=== PATIENT | male | born 1955 | race Caucasian/White ===

== ENCOUNTER 2017-11-08 12:22 | Emergency (ER) | payer OTHER ==
[2017-11-08] MEDS ORDERED: 0.9 % SODIUM CHLORIDE 1,000 ML BAG IV ONE (13:02)
[2017-11-08 13:03] LABS: INFLUENZA A NEGATIVE (NEGATIVE); INFLUENZA B NEGATIVE (NEGATIVE)
--- NOTE | 2017-11-08 13:04 | Emergency Department Record ---
History of Present Illness - General Chief Complaint: Cough Stated Complaint: CHEST PAIN,FEVER,WHEEZING,BODY ACHES Time Seen by Provider: 11/08/17 12:51 Source: Patient Mode of Arrival: Ambulatory - History of Present Illness Initial Comments: cough and body aches which started 2 days ago. head hurts with cough. PMH Hypertensions.chills and shakes last Onset/Timin -: Days(s) Severity: Moderate Severity scale (1-10): 8 Consistency: Intermittent, Getting worse - Related Data Home Medications Medication Instructions Recorded Confirmed Last Taken Multivit-Min/FA/Lycopen/Lutein 1 tab PO DAILY 11/08/17 11/08/17 11/08/17 [Centrum Silver Men Tablet] Previous Rx's Medication Instructions Recorded Doxycycline Monohydrate 100 mg PO BID #20 capsule 11/08/17 Allergies Allergy/AdvReac Type Severity Reaction Status Date / Time lorazepam [From Ativan] Allergy Severe BEHAVIORAL Verified 11/08/17 12:31 CHANGES Travel Screening - Travel/Exposure Within Last 30 Days Have you traveled within the last 30 days?: No - Travel/Exposure Within Last Year Have you traveled outside the [place] in the last year?: No - Additonal Travel Details Have you been exposed to anyone with a communicable illness?: No - Travel Symptoms Symptom Screening: None Review of Systems Reviewed: No additional complaints except as noted below Constitutional: Reports: As per HPI. Denies: Chills, Fever, Malaise, Night sweats, Weakness, Weight change Eyes: Reports: As per HPI. Denies: Eye discharge, Eye pain, Photophobia, Vision change ENT: Reports: As per HPI, Congestion. Denies: Dental pain, Ear pain, Epistaxis , Hearing loss, Throat pain Respiratory: Reports: As per HPI, Cough. Denies: Dyspnea, Hemoptysis, Stridor, Wheezes Cardiovascular: Reports: As per HPI. Denies: Arrhythmia, Chest pain, Dyspnea on exertion, Edema, Murmurs, Orthopnea, Palpitations, Paroxysmal nocturnal dyspnea, Rheumatic Fever, Syncope Endocrine: Reports: As per HPI. Denies: Fatigue, Heat or cold intolerance, Polydipsia, Polyuria Gastrointestinal: Reports: As per HPI. Denies: Abdominal pain, Constipation, Diarrhea, Hematemesis, Hematochezia, Melena, Nausea, Vomiting Genitourinary: Reports: As per HPI. Denies: Dysuria, Frequency, Hematuria, Incontinence, Retention, Testicular pain, Testicular mass, Urgency Musculoskeletal: Reports: As per HPI. Denies: Arthralgia, Back pain, Gout, Joint swelling, Myalgia, Neck pain Skin: Reports: As per HPI. Denies: Bruising, Change in color, Change in hair/ nails, Lesions, Pruritus, Rash Neurological: Reports: As per HPI. Denies: Abnormal gait, Confusion, Headache, Numbness, Paresthesias, Seizure, Tingling, Tremors, Vertigo, Weakness Psychiatric: Reports: As per HPI. Denies: Anxiety, Auditory hallucinations, Depression, Homicidal thoughts, Suicidal thoughts, Visual hallucinations Hematological/Lymphatic: Reports: As per HPI. Denies: Anemia, Blood Clots, Easy bleeding, Easy bruising, Swollen glands Past Medical History - SOCIAL HISTORY Smoking Status: Never smoker Alcohol Use: Heavy Drug Use: None - RESPIRATORY Hx Respiratory Disorders: No - CARDIOVASCULAR Hx Cardio Disorders: Yes Hx Hypertension: Yes - NEURO Hx Neuro Disorders: No - GI Hx GI Disorders: No - Hx Genitourinary Disorders: No - ENDOCRINE Hx Endocrine Disorders: No - MUSCULOSKELETAL Hx Musculoskeletal Disorders: No - PSYCH Hx Psych Problems: No - HEMATOLOGY/ONCOLOGY Hx Hematology/Oncology Disorders: No Family Medical History Any Significant Family History?: Yes Hx Cancer: Father Physical Exam - General General Appearance: Alert, Oriented x3, Cooperative, Mild distress - Head Head exam: Normal inspection - Eye Eye exam: Normal appearance, PERRL Pupils: Normal accommodation - ENT ENT exam: Normal exam, Mucous membranes moist, Normal external ear exam, Normal orophraynx, TM's normal bilaterally Ear exam: Normal external inspection. negative: External canal tenderness Nasal Exam: Normal inspection. negative: Discharge, Sinus tenderness Mouth exam: Normal external inspection, Tongue normal Teeth exam: Normal inspection. negative: Dental caries Throat exam: Normal inspection. negative: Tonsillar erythema, Tonsillar exudate - Neck Neck exam: Normal inspection, Full ROM. negative: Tenderness - Respiratory Respiratory exam: Normal lung sounds bilaterally. negative: Respiratory distress - Cardiovascular Cardiovascular Exam: Regular rate, Normal rhythm, Normal heart sounds - GI/Abdominal GI/Abdominal exam: Soft, Normal bowel sounds. negative: Tenderness - Rectal Rectal exam: Deferred - exam: Deferred - Extremities Extremities exam: Normal inspection, Full ROM, Normal capillary refill. negative: Tenderness - Back Back exam: Reports: Normal inspection, Full ROM. Denies: Muscle spasm, Rash noted, Tenderness - Neurological Neurological exam: Alert, Normal gait, Oriented X3, Reflexes normal - Psychiatric Psychiatric exam: Normal affect, Normal mood - Skin Skin exam: Dry, Intact, Normal color, Warm Course Vital Signs 11/08/17 12:34 Temperature 98.7 F Pulse Rate 82 Respiratory 20 Rate Blood Pressure 132/91 Pulse Ox 94 L Medical Decision Making - Lab Data Result diagrams: 11/08/17 13:30 11/08/17 13:30 Disposition Clinical Impression: Bronchitis Disposition: Home, Self-Care Condition: (1) Good Instructions: Acute Bronchitis (ED) Additional Instructions: follow up with primary in 5 days terrence DM 10 ml every 4 hours Prescriptions: Doxycycline Monohydrate 100 mg PO BID #20 capsule Forms: Patient Portal Access Time of Disposition: 14:19 Quality - Quality Measures Quality Measures: N/A - Blood Pressure Screening Does Patient Have Any of the Following: No Blood Pressure Classification: Hypertensive Reading Systolic Measurement: 132 Diastolic Measurement: 91 Screening for High Blood Pressure: < Pre-Hypertensive BP, F/U Documented > [ [id number]] Pre-Hypertensive Follow-up Interventions: Referral to alternative/primary care provider.
[2017-11-08] MEDS ORDERED: ACETAMINOPHEN 325 MG TAB PO ONE (13:07)
[2017-11-08 13:48] LABS: HEMATOCRIT 45.5 % (42.0-52.0); MEAN CORPUSCULAR HEMOGLOBIN 33.4 pg (27-33); MEAN CORPUSCULAR HGB CONC 35.2 g/dl (32-36); MEAN PLATELET VOLUME 9.9 fl (7.4-10.4); PLATELET COUNT 200 K/uL (130-400); RED BLOOD COUNT 4.79 M/uL (4.40-5.70); WHITE BLOOD COUNT W/O DIFF 6.1 K/uL (4.2-12.2)
[2017-11-08 13:53] LABS: BLOOD UREA NITROGEN 12 mg/dL (8-23); CREATININE 0.9 mg/dL (0.7-1.2); EST GLOMERULAR FILTRATION RATE > 60 mL/min
[2017-11-08 13:56] LABS: GLUCOSE,RANDOM 106 mg/dL (74-109)
[2017-11-08 14:22] LABS: PLATELET ESTIMATE NORMAL (NORMAL)
--- NOTE | 2017-11-09 14:14 | RADIOLOGY REPORT ---
EXAM: CHEST, TWO VIEWS HISTORY: CHEST PAIN, COUGH, DIFFICULTY IN BREATHING, DIZZINESS. TECHNIQUE: PA and lateral views of the chest were obtained. A preliminary report was provided by [facility]. Comparison: None. FINDINGS: The heart size is lynne. The lungs appear expanded with no acute infiltrate seen. No pleural effusion or pneumothorax evident. Minor spurring in the spine. IMPRESSION: MINOR SPURRING IN THE SPINE. NO ACUTE INFILTRATE IDENTIFIED. JOB NUMBER: [id number] MTDD
== END 2017-11-08 14:39 | disposition home or self-care (01) ==
LOC: ER 12:22
DX: J20.9 Acute bronchitis, unspecified (principal); R06.00 Dyspnea, unspecified; R42 Dizziness and giddiness; I10 Essential (primary) hypertension
CPT/HCPCS: 71046; 80048; 85027; 87400; 99284; J7030